=== PATIENT | male | born 1960 | race Caucasian/White ===

== ENCOUNTER 2022-11-19 17:50 | Inpatient (IN) | payer MEDICARE ==
[2022-11-19 20:14] LABS: BASOPHILS ABSOLUTE AUTO 0.05 K/uL (0.00-0.10); BASOPHILS PERCENT AUTO 0.4 % (0.1-1.3); EOSINOPHILS ABSOLUTE AUTO 0.11 K/uL (0.00-0.40); EOSINOPHILS PERCENT AUTO 0.9 % (0.0-5.4); HEMATOCRIT 39.8 % (38.4-49.7); HEMOGLOBIN 13.9 g/dL (12.9-16.9); IMMATURE GRAN ABSOLUTE AUTO 0.14 K/uL (0.00-0.23); IMMATURE GRAN PERCENT AUTO 1.1 % (0.0-0.7); LYMPHOCYTES ABSOLUTE AUTO 2.84 K/uL (0.8-3.3); MEAN CORPUSCULAR HGB CONC 34.9 g/dL (31.6-35.5); MEAN CORPUSCULAR VOLUME 100.3 fL (81.4-99.0); MONOCYTES ABSOLUTE AUTO 0.91 K/uL (0.20-0.90); NEUTROPHILS ABSOLUTE AUTO 8.87 K/uL (1.0-7.6); NEUTROPHILS PERCENT AUTO 68.6 % (40.0-78.1); PLATELET COUNT,PLT 264 K/uL (130-375); RED BLOOD CELL COUNT 3.97 M/uL (4.14-5.76); WHITE BLOOD CELL COUNT,WBC 12.9 K/uL (3.2-11.0)
[2022-11-19 20:34] LABS: A/G RATIO 0.7 (1.2-2.2); ALANINE AMINOTRANSFERASE,ALT 20 U/L (12-78); ALBUMIN 3.2 g/dL (3.4-5.0); ALKALINE PHOSPHATASE 93 U/L (46-116); ASPARTATE AMNIOTRANSFERASE,AST 13 U/L (15-37); BILIRUBIN TOTAL 0.4 mg/dL (0.2-1.0); BLOOD UREA NITROGEN,BUN 18 mg/dL (7-18); CALCIUM 8.9 mg/dL (8.5-10.1); CARBON DIOXIDE,CO2 29 mmol/L (21-32); CHLORIDE,CL 100 mmol/L (100-108); ESTIMATED GFR 86 mL/min (>60); GLUCOSE RANDOM 160 mg/dL (74-106); POTASSIUM,K 4.2 mmol/L (3.6-5.2); SODIUM,NA 135 mmol/L (140-148)
[2022-11-19 20:35] LABS: ANION GAP 10.2 mmol/L (5.0-14.0)
[2022-11-19] MEDS: Piperacillin/Tazobactam 3.375 GM in Sodium Chloride 0.9% 50 ML IV SCH (21:44)
[2022-11-19] MEDS ORDERED: Docusate Sodium 100 MG Cap PO PRN (22:41)
[2022-11-19] MEDS ORDERED: Ondansetron 4 MG Tab.DIS PO PRN (22:41)
[2022-11-19] MEDS ORDERED: Morphine 2 MG/ML SYRINGE IVPUSH PRN (22:41)
[2022-11-19] MEDS ORDERED: LORazepam 2 MG/ML SDV IV PRN (22:41)
[2022-11-19] MEDS ORDERED: Bisacodyl 5 MG Tab PO PRN (22:41)
[2022-11-19] MEDS ORDERED: Albuterol 0.083% 2.5 MG/3 ML Neb Soln NEB PRN (22:41)
[2022-11-19] MEDS ORDERED: Naloxone 0.4 MG/ML SDV IVPUSH PRN (22:41)
[2022-11-19] MEDS: Sodium Chloride 0.9% 1,000 ML IV SCH (22:48)
[2022-11-19] MEDS: Nicotine 7 MG/24 Hr Patch TRDERM SCH (22:49)
[2022-11-19] MEDS: QUEtiapine 25 MG Tab PO SCH (22:55)
[2022-11-19] MEDS: Enoxaparin 40 MG/0.4 ML Syringe SUBCUT SCH (22:55)
[2022-11-20] MEDS: Acetaminophen 325 MG Tab PO PRN ×2 (00:13→15:43)
[2022-11-20] MEDS: Piperacillin/Tazobactam 3.375 GM in Sodium Chloride 0.9% 50 ML IV SCH ×2 (03:16→11:25)
[2022-11-20 05:01] LABS: BASOPHILS ABSOLUTE AUTO 0.05 K/uL (0.00-0.10); BASOPHILS PERCENT AUTO 0.6 % (0.1-1.3); EOSINOPHILS ABSOLUTE AUTO 0.15 K/uL (0.00-0.40); EOSINOPHILS PERCENT AUTO 1.8 % (0.0-5.4); HEMATOCRIT 35.8 % (38.4-49.7); HEMOGLOBIN 12.4 g/dL (12.9-16.9); IMMATURE GRAN ABSOLUTE AUTO 0.06 K/uL (0.00-0.23); IMMATURE GRAN PERCENT AUTO 0.7 % (0.0-0.7); LYMPHOCYTES ABSOLUTE AUTO 2.06 K/uL (0.8-3.3); LYMPHOCYTES PERCENT AUTO 24.9 % (11.4-47.7); MEAN CORPUSCULAR HEMOGLOBIN 35.2 pg (31.6-35.5); MEAN CORPUSCULAR HGB CONC 34.6 g/dL (31.6-35.5); MEAN CORPUSCULAR VOLUME 101.7 fL (81.4-99.0); MONOCYTES PERCENT AUTO 6.1 % (3.3-12.6); NEUTROPHILS ABSOLUTE AUTO 5.44 K/uL (1.0-7.6); NEUTROPHILS PERCENT AUTO 65.9 % (40.0-78.1); PLATELET COUNT,PLT 217 K/uL (130-375); RED BLOOD CELL COUNT 3.52 M/uL (4.14-5.76); WHITE BLOOD CELL COUNT,WBC 8.3 K/uL (3.2-11.0)
[2022-11-20 05:14] LABS: CALCIUM 8.2 mg/dL (8.5-10.1); CREATININE 0.9 mg/dL (0.8-1.3); EST CRCL DRUG DOSING (CG) 84.76 mL/min; POTASSIUM,K 4.6 mmol/L (3.6-5.2)
[2022-11-20 05:26] LABS: ANION GAP 12.6 mmol/L (5.0-14.0)
[2022-11-20] MEDS: Sodium Chloride 0.9% 1,000 ML IV SCH (06:36)
[2022-11-20] MEDS: Insulin Lispro 100 Unit/ML 3 ML KwikPen SUBCUT SCH ×4 (08:52→20:58)
[2022-11-20] MEDS: Nicotine 7 MG/24 Hr Patch TRDERM SCH (08:58)
[2022-11-20 08:59] LABS: HEMOGLOBIN A1C 7.5 % (4.5-6.2)
[2022-11-20] MEDS: Lisinopril 20 MG Tab PO SCH (08:59)
[2022-11-20] MEDS: Enoxaparin 40 MG/0.4 ML Syringe SUBCUT SCH (08:59)
[2022-11-20 09:07] LABS: MAGNESIUM 2.2 mg/dL (1.8-2.4); PHOSPHORUS 3.8 mg/dL (2.5-4.9)
[2022-11-20] MEDS ORDERED: Piperacillin/Tazobactam 3.375 GM in Sodium Chloride 0.9% 50 ML IV SCH (09:30)
[2022-11-20] MEDS: Piperacillin/Tazobactam/Dext 3.375 GM in Premix Bag 1 BAG IV SCH ×3 (10:26→22:35)
[2022-11-20] MEDS: Linezolid 600 MG in Premix Bag 1 BAG IV SCH ×2 (11:08→21:04)
[2022-11-20] MEDS: metFORMIN 500 MG Tab PO SCH ×4 (12:53→20:52)
[2022-11-20 12:54] LABS: APPEARANCE,URINE SLIGHTLY CLOUDY (CLEAR); BILIRUBIN,URINE NEGATIVE (NEGATIVE); COLOR,URINE YELLOW (YELLOW); GLUCOSE,URINE 250 mg/dL (NEGATIVE); KETONES,URINE NEGATIVE (NEGATIVE); LEUKOCYTE ESTERASE,URINE NEGATIVE (NEGATIVE); NITRITE,URINE NEGATIVE (NEGATIVE); OCCULT BLOOD,URINE NEGATIVE (NEGATIVE); PROTEIN,URINE 30 mg/dL (NEGATIVE)
[2022-11-20 12:58] LABS: AMORPHOUS SEDIMENT,URINE RARE; BACTERIA,URINE NOT SEEN; EPITHELIAL CELLS,URINE RARE; MUCUS,URINE NOT SEEN; RBC,URINE 0-5 (0-5); WBC,URINE 0-5 (0-5)
[2022-11-20] MEDS: Pantoprazole 40 MG Vial IV SCH (20:52)
[2022-11-20] MEDS: QUEtiapine 25 MG Tab PO SCH (20:52)
[2022-11-21] MEDS: Piperacillin/Tazobactam/Dext 3.375 GM in Premix Bag 1 BAG IV SCH ×4 (04:10→21:30)
[2022-11-21 05:01] LABS: BASOPHILS ABSOLUTE AUTO 0.04 K/uL (0.00-0.10); BASOPHILS PERCENT AUTO 0.5 % (0.1-1.3); EOSINOPHILS ABSOLUTE AUTO 0.31 K/uL (0.00-0.40); EOSINOPHILS PERCENT AUTO 3.7 % (0.0-5.4); HEMATOCRIT 36.2 % (38.4-49.7); HEMOGLOBIN 12.3 g/dL (12.9-16.9); IMMATURE GRAN PERCENT AUTO 1.2 % (0.0-0.7); LYMPHOCYTES ABSOLUTE AUTO 2.96 K/uL (0.8-3.3); LYMPHOCYTES PERCENT AUTO 35.5 % (11.4-47.7); MEAN CORPUSCULAR HEMOGLOBIN 34.6 pg (31.6-35.5); MONOCYTES ABSOLUTE AUTO 0.53 K/uL (0.20-0.90); MONOCYTES PERCENT AUTO 6.4 % (3.3-12.6); NEUTROPHILS ABSOLUTE AUTO 4.39 K/uL (1.0-7.6); NEUTROPHILS PERCENT AUTO 52.7 % (40.0-78.1); PLATELET COUNT,PLT 238 K/uL (130-375); RED BLOOD CELL COUNT 3.55 M/uL (4.14-5.76); WHITE BLOOD CELL COUNT,WBC 8.3 K/uL (3.2-11.0)
[2022-11-21 05:19] LABS: CALCIUM 8.5 mg/dL (8.5-10.1); CREATININE 0.8 mg/dL (0.8-1.3); EST CRCL DRUG DOSING (CG) 95.35 mL/min; POTASSIUM,K 4.1 mmol/L (3.6-5.2)
[2022-11-21 05:22] LABS: ANION GAP 10.1 mmol/L (5.0-14.0)
[2022-11-21] MEDS: Insulin Lispro 100 Unit/ML 3 ML KwikPen SUBCUT SCH ×4 (07:43→21:07)
[2022-11-21] MEDS: metFORMIN 500 MG Tab PO SCH ×4 (08:41→21:30)
[2022-11-21] MEDS: Lisinopril 20 MG Tab PO SCH (08:42)
[2022-11-21] MEDS: Nicotine 7 MG/24 Hr Patch TRDERM SCH (08:43)
[2022-11-21] MEDS: Enoxaparin 40 MG/0.4 ML Syringe SUBCUT SCH (08:45)
[2022-11-21] MEDS: Linezolid 600 MG in Premix Bag 1 BAG IV SCH ×2 (10:32→22:20)
[2022-11-21] MEDS: Acetaminophen 325 MG Tab PO PRN (14:36)
[2022-11-21] MEDS: QUEtiapine 25 MG Tab PO SCH (21:30)
[2022-11-21] MEDS: Pantoprazole 40 MG Vial IV SCH (21:30)
[2022-11-22] MEDS: Piperacillin/Tazobactam/Dext 3.375 GM in Premix Bag 1 BAG IV SCH ×4 (02:34→21:53)
[2022-11-22 04:52] LABS: BASOPHILS ABSOLUTE AUTO 0.05 K/uL (0.00-0.10); BASOPHILS PERCENT AUTO 0.5 % (0.1-1.3); EOSINOPHILS ABSOLUTE AUTO 0.27 K/uL (0.00-0.40); EOSINOPHILS PERCENT AUTO 2.5 % (0.0-5.4); HEMATOCRIT 36.1 % (38.4-49.7); HEMOGLOBIN 12.8 g/dL (12.9-16.9); IMMATURE GRAN PERCENT AUTO 0.9 % (0.0-0.7); LYMPHOCYTES ABSOLUTE AUTO 3.85 K/uL (0.8-3.3); LYMPHOCYTES PERCENT AUTO 36.2 % (11.4-47.7); MEAN CORPUSCULAR HEMOGLOBIN 35.4 pg (31.6-35.5); MEAN CORPUSCULAR HGB CONC 35.5 g/dL (31.6-35.5); MEAN CORPUSCULAR VOLUME 99.7 fL (81.4-99.0); MONOCYTES ABSOLUTE AUTO 0.72 K/uL (0.20-0.90); MONOCYTES PERCENT AUTO 6.8 % (3.3-12.6); NEUTROPHILS ABSOLUTE AUTO 5.66 K/uL (1.0-7.6); NEUTROPHILS PERCENT AUTO 53.1 % (40.0-78.1); PLATELET COUNT,PLT 259 K/uL (130-375); RED BLOOD CELL COUNT 3.62 M/uL (4.14-5.76); WHITE BLOOD CELL COUNT,WBC 10.7 K/uL (3.2-11.0)
[2022-11-22 05:00] LABS: CALCIUM 8.6 mg/dL (8.5-10.1); CREATININE 0.9 mg/dL (0.8-1.3); EST CRCL DRUG DOSING (CG) 84.76 mL/min; POTASSIUM,K 3.8 mmol/L (3.6-5.2)
[2022-11-22 05:19] LABS: ANION GAP 14.8 mmol/L (5.0-14.0)
[2022-11-22] MEDS: Insulin Lispro 100 Unit/ML 3 ML KwikPen SUBCUT SCH ×4 (07:33→21:59)
[2022-11-22] MEDS: metFORMIN 500 MG Tab PO SCH ×4 (08:31→21:54)
[2022-11-22] MEDS: Nicotine 7 MG/24 Hr Patch TRDERM SCH (08:33)
[2022-11-22] MEDS: Enoxaparin 40 MG/0.4 ML Syringe SUBCUT SCH (08:34)
[2022-11-22] MEDS: Lisinopril 20 MG Tab PO SCH (08:34)
[2022-11-22] MEDS ORDERED: Gadoteridol 279.3 MG/ML 20 ML SDV IV SCH (09:15)
[2022-11-22] MEDS: Linezolid 600 MG in Premix Bag 1 BAG IV SCH ×2 (10:36→22:03)
[2022-11-22] MEDS: QUEtiapine 100 MG Tab PO SCH (21:53)
[2022-11-22] MEDS: Pantoprazole 40 MG Tab.CR PO SCH (21:54)
[2022-11-23] MEDS: Piperacillin/Tazobactam/Dext 3.375 GM in Premix Bag 1 BAG IV SCH ×2 (02:40→08:50)
[2022-11-23 05:12] LABS: BASOPHILS ABSOLUTE AUTO 0.04 K/uL (0.00-0.10); BASOPHILS PERCENT AUTO 0.4 % (0.1-1.3); EOSINOPHILS ABSOLUTE AUTO 0.25 K/uL (0.00-0.40); EOSINOPHILS PERCENT AUTO 2.4 % (0.0-5.4); HEMATOCRIT 36.5 % (38.4-49.7); HEMOGLOBIN 12.6 g/dL (12.9-16.9); IMMATURE GRAN ABSOLUTE AUTO 0.08 K/uL (0.00-0.23); IMMATURE GRAN PERCENT AUTO 0.8 % (0.0-0.7); LYMPHOCYTES ABSOLUTE AUTO 3.93 K/uL (0.8-3.3); LYMPHOCYTES PERCENT AUTO 37.7 % (11.4-47.7); MEAN CORPUSCULAR HEMOGLOBIN 34.4 pg (31.6-35.5); MEAN CORPUSCULAR HGB CONC 34.5 g/dL (31.6-35.5); MEAN CORPUSCULAR VOLUME 99.7 fL (81.4-99.0); MONOCYTES ABSOLUTE AUTO 0.63 K/uL (0.20-0.90); NEUTROPHILS PERCENT AUTO 52.7 % (40.0-78.1); PLATELET COUNT,PLT 258 K/uL (130-375); RED BLOOD CELL COUNT 3.66 M/uL (4.14-5.76); WHITE BLOOD CELL COUNT,WBC 10.4 K/uL (3.2-11.0)
[2022-11-23] MEDS: oxyCODONE 5 MG Tab PO PRN ×4 (05:14→23:42)
[2022-11-23 05:26] LABS: ANION GAP 12.1 mmol/L (5.0-14.0); CALCIUM 8.3 mg/dL (8.5-10.1); CREATININE 0.9 mg/dL (0.8-1.3); EST CRCL DRUG DOSING (CG) 84.76 mL/min; POTASSIUM,K 3.9 mmol/L (3.6-5.2)
[2022-11-23] MEDS ORDERED: Meropenem 500 MG SDV ONE (07:48)
[2022-11-23] MEDS ORDERED: fentaNYL 250 MCG/5 ML SDV ONE ×2 (08:20→10:01)
[2022-11-23] MEDS ORDERED: Glycopyrrolate 0.2 MG/ML 5 ML MDV ONE (08:22)
[2022-11-23] MEDS ORDERED: Rocuronium 50 MG/5 ML Vial ONE (08:22)
[2022-11-23] MEDS ORDERED: Dexamethasone 4 MG/ML SDV ONE (08:22)
[2022-11-23] MEDS ORDERED: Propofol 200 MG/20 ML SDV ONE (08:22)
[2022-11-23] MEDS ORDERED: Neostigmine Methylsulfate 1 MG/ML 5 ML Syringe ONE (08:22)
[2022-11-23] MEDS ORDERED: Succinylcholine 200 MG/10 ML MDV ONE (08:22)
[2022-11-23] MEDS ORDERED: Ondansetron 4 MG/2 ML SDV ONE (08:22)
[2022-11-23] MEDS: Insulin Lispro 100 Unit/ML 3 ML KwikPen SUBCUT SCH ×4 (08:29→20:51)
[2022-11-23] MEDS: metFORMIN 500 MG Tab PO SCH ×4 (08:42→20:16)
[2022-11-23] MEDS: Enoxaparin 40 MG/0.4 ML Syringe SUBCUT SCH (08:43)
[2022-11-23] MEDS: Lisinopril 20 MG Tab PO SCH ×2 (08:44→12:00)
[2022-11-23] MEDS ORDERED: Meropenem 500 MG in Sodium Chloride 0.9% 50 ML IV ONE (10:00)
[2022-11-23] MEDS: Linezolid 600 MG in Premix Bag 1 BAG IV SCH ×2 (10:15→21:36)
[2022-11-23] MEDS ORDERED: Hydrogen Peroxide 3% Top Soln 240 ML Bottle ONE (10:59)
[2022-11-23] MEDS: Nicotine 7 MG/24 Hr Patch TRDERM SCH (11:59)
[2022-11-23] MEDS: Lactated Ringers 1,000 ML IV SCH (12:39)
[2022-11-23] MEDS: Meropenem 500 MG in Sodium Chloride 0.9% 50 ML IV SCH ×2 (15:46→21:00)
[2022-11-23] MEDS: Pantoprazole 40 MG Tab.CR PO SCH (20:17)
[2022-11-23] MEDS: QUEtiapine 100 MG Tab PO SCH (20:17)
[2022-11-23] MEDS: DULoxetine 20 MG Cap PO SCH (20:55)
[2022-11-24] MEDS: Lactated Ringers 1,000 ML IV SCH ×2 (03:55→20:34)
[2022-11-24] MEDS: Meropenem 500 MG in Sodium Chloride 0.9% 50 ML IV SCH ×2 (03:55→10:05)
[2022-11-24] MEDS: oxyCODONE 5 MG Tab PO PRN ×4 (03:56→20:49)
[2022-11-24 04:15] LABS: BASOPHILS ABSOLUTE AUTO 0.03 K/uL (0.00-0.10); BASOPHILS PERCENT AUTO 0.2 % (0.1-1.3); EOSINOPHILS ABSOLUTE AUTO 0.03 K/uL (0.00-0.40); EOSINOPHILS PERCENT AUTO 0.2 % (0.0-5.4); HEMATOCRIT 34.5 % (38.4-49.7); HEMOGLOBIN 12.2 g/dL (12.9-16.9); IMMATURE GRAN ABSOLUTE AUTO 0.07 K/uL (0.00-0.23); IMMATURE GRAN PERCENT AUTO 0.5 % (0.0-0.7); LYMPHOCYTES ABSOLUTE AUTO 3.27 K/uL (0.8-3.3); LYMPHOCYTES PERCENT AUTO 25.2 % (11.4-47.7); MEAN CORPUSCULAR HEMOGLOBIN 35.2 pg (31.6-35.5); MEAN CORPUSCULAR HGB CONC 35.4 g/dL (31.6-35.5); MEAN CORPUSCULAR VOLUME 99.4 fL (81.4-99.0); MONOCYTES ABSOLUTE AUTO 0.89 K/uL (0.20-0.90); MONOCYTES PERCENT AUTO 6.9 % (3.3-12.6); NEUTROPHILS ABSOLUTE AUTO 8.67 K/uL (1.0-7.6); PLATELET COUNT,PLT 252 K/uL (130-375); RED BLOOD CELL COUNT 3.47 M/uL (4.14-5.76)
[2022-11-24 04:44] LABS: A/G RATIO 0.7 (1.2-2.2); ALANINE AMINOTRANSFERASE,ALT 154 U/L (12-78); ALBUMIN 2.7 g/dL (3.4-5.0); ALKALINE PHOSPHATASE 97 U/L (46-116); ANION GAP 11.3 mmol/L (5.0-14.0); ASPARTATE AMNIOTRANSFERASE,AST 75 U/L (15-37); BILIRUBIN TOTAL 0.3 mg/dL (0.2-1.0); BLOOD UREA NITROGEN,BUN 14 mg/dL (7-18); CALCIUM 8.3 mg/dL (8.5-10.1); CARBON DIOXIDE,CO2 27 mmol/L (21-32); CHLORIDE,CL 102 mmol/L (100-108); CREATININE 0.9 mg/dL (0.8-1.3); EST CRCL DRUG DOSING (CG) 84.76 mL/min; ESTIMATED GFR 98 mL/min (>60); GLUCOSE RANDOM 115 mg/dL (74-106); MAGNESIUM 2.2 mg/dL (1.8-2.4); PHOSPHORUS 3.5 mg/dL (2.5-4.9); PRO B-TYPE NATRIUR PEPT,BNPPRO 47 pg/mL (5-125); PROTEIN TOTAL,TP 6.8 g/dL (6.4-8.2); SODIUM,NA 140 mmol/L (140-148)
[2022-11-24] MEDS: Insulin Lispro 100 Unit/ML 3 ML KwikPen SUBCUT SCH ×4 (07:42→21:39)
[2022-11-24] MEDS: DULoxetine 20 MG Cap PO SCH ×2 (08:43→21:39)
[2022-11-24] MEDS: metFORMIN 500 MG Tab PO SCH ×4 (08:44→21:38)
[2022-11-24] MEDS: Nicotine 7 MG/24 Hr Patch TRDERM SCH (08:45)
[2022-11-24] MEDS: Enoxaparin 40 MG/0.4 ML Syringe SUBCUT SCH (08:46)
[2022-11-24] MEDS: Lisinopril 20 MG Tab PO SCH (08:47)
[2022-11-24] MEDS: Linezolid 600 MG in Premix Bag 1 BAG IV SCH (10:41)
[2022-11-24] MEDS: metroNIDAZOLE/Normal Saline 500 MG in Premix Bag 1 BAG IV SCH ×2 (14:38→21:41)
[2022-11-24] MEDS: cefTRIAXone 2 GM in Sodium Chloride 0.9% 50 ML IV SCH (16:52)
[2022-11-24] MEDS: QUEtiapine 100 MG Tab PO SCH (21:37)
[2022-11-24] MEDS: Pantoprazole 40 MG Tab.CR PO SCH (21:37)
[2022-11-24] MEDS: Acetaminophen 325 MG Tab PO PRN (23:43)
[2022-11-25] MEDS: oxyCODONE 5 MG Tab PO PRN ×5 (05:13→23:49)
[2022-11-25 05:14] LABS: BASOPHILS ABSOLUTE AUTO 0.06 K/uL (0.00-0.10); BASOPHILS PERCENT AUTO 0.5 % (0.1-1.3); EOSINOPHILS ABSOLUTE AUTO 0.27 K/uL (0.00-0.40); EOSINOPHILS PERCENT AUTO 2.3 % (0.0-5.4); HEMATOCRIT 33.7 % (38.4-49.7); HEMOGLOBIN 11.7 g/dL (12.9-16.9); IMMATURE GRAN ABSOLUTE AUTO 0.07 K/uL (0.00-0.23); IMMATURE GRAN PERCENT AUTO 0.6 % (0.0-0.7); LYMPHOCYTES ABSOLUTE AUTO 3.85 K/uL (0.8-3.3); MEAN CORPUSCULAR HEMOGLOBIN 35.1 pg (31.6-35.5); MEAN CORPUSCULAR HGB CONC 34.7 g/dL (31.6-35.5); MEAN CORPUSCULAR VOLUME 101.2 fL (81.4-99.0); MONOCYTES ABSOLUTE AUTO 0.73 K/uL (0.20-0.90); MONOCYTES PERCENT AUTO 6.3 % (3.3-12.6); NEUTROPHILS ABSOLUTE AUTO 6.67 K/uL (1.0-7.6); NEUTROPHILS PERCENT AUTO 57.3 % (40.0-78.1); PLATELET COUNT,PLT 241 K/uL (130-375); RED BLOOD CELL COUNT 3.33 M/uL (4.14-5.76); WHITE BLOOD CELL COUNT,WBC 11.7 K/uL (3.2-11.0)
[2022-11-25] MEDS: metroNIDAZOLE/Normal Saline 500 MG in Premix Bag 1 BAG IV SCH ×3 (05:14→21:31)
[2022-11-25 05:34] LABS: ANION GAP 6.9 mmol/L (5.0-14.0); CALCIUM 8.3 mg/dL (8.5-10.1); CREATININE 0.8 mg/dL (0.8-1.3); EST CRCL DRUG DOSING (CG) 95.35 mL/min; POTASSIUM,K 4.2 mmol/L (3.6-5.2)
[2022-11-25] MEDS: Insulin Lispro 100 Unit/ML 3 ML KwikPen SUBCUT SCH ×4 (08:46→21:23)
[2022-11-25] MEDS: metFORMIN 500 MG Tab PO SCH ×6 (08:49→22:57)
[2022-11-25] MEDS: Lisinopril 20 MG Tab PO SCH (08:50)
[2022-11-25] MEDS: Enoxaparin 40 MG/0.4 ML Syringe SUBCUT SCH (08:52)
[2022-11-25] MEDS: Nicotine 7 MG/24 Hr Patch TRDERM SCH (08:52)
[2022-11-25] MEDS: DULoxetine 20 MG Cap PO SCH ×2 (08:55→21:28)
[2022-11-25] MEDS: cefTRIAXone 2 GM in Sodium Chloride 0.9% 50 ML IV SCH (16:58)
[2022-11-25] MEDS: Pantoprazole 40 MG Tab.CR PO SCH (21:28)
[2022-11-25] MEDS: QUEtiapine 100 MG Tab PO SCH (21:28)
[2022-11-26 04:58] LABS: BASOPHILS ABSOLUTE AUTO 0.05 K/uL (0.00-0.10); BASOPHILS PERCENT AUTO 0.5 % (0.1-1.3); EOSINOPHILS ABSOLUTE AUTO 0.26 K/uL (0.00-0.40); EOSINOPHILS PERCENT AUTO 2.4 % (0.0-5.4); HEMATOCRIT 33.5 % (38.4-49.7); HEMOGLOBIN 11.7 g/dL (12.9-16.9); IMMATURE GRAN ABSOLUTE AUTO 0.07 K/uL (0.00-0.23); IMMATURE GRAN PERCENT AUTO 0.6 % (0.0-0.7); LYMPHOCYTES ABSOLUTE AUTO 3.54 K/uL (0.8-3.3); LYMPHOCYTES PERCENT AUTO 32.8 % (11.4-47.7); MEAN CORPUSCULAR HEMOGLOBIN 34.8 pg (31.6-35.5); MEAN CORPUSCULAR HGB CONC 34.9 g/dL (31.6-35.5); MEAN CORPUSCULAR VOLUME 99.7 fL (81.4-99.0); MONOCYTES ABSOLUTE AUTO 0.67 K/uL (0.20-0.90); MONOCYTES PERCENT AUTO 6.2 % (3.3-12.6); NEUTROPHILS ABSOLUTE AUTO 6.19 K/uL (1.0-7.6); NEUTROPHILS PERCENT AUTO 57.5 % (40.0-78.1); PLATELET COUNT,PLT 252 K/uL (130-375); RED BLOOD CELL COUNT 3.36 M/uL (4.14-5.76); WHITE BLOOD CELL COUNT,WBC 10.8 K/uL (3.2-11.0)
[2022-11-26] MEDS: oxyCODONE 5 MG Tab PO PRN ×3 (05:05→21:43)
[2022-11-26 05:19] LABS: ANION GAP 7.7 mmol/L (5.0-14.0); CALCIUM 8.6 mg/dL (8.5-10.1); CREATININE 0.8 mg/dL (0.8-1.3); EST CRCL DRUG DOSING (CG) 95.35 mL/min; POTASSIUM,K 3.9 mmol/L (3.6-5.2)
[2022-11-26] MEDS: metroNIDAZOLE/Normal Saline 500 MG in Premix Bag 1 BAG IV SCH (05:38)
[2022-11-26] MEDS: Insulin Lispro 100 Unit/ML 3 ML KwikPen SUBCUT SCH ×4 (07:34→21:38)
[2022-11-26] MEDS ORDERED: Levofloxacin 250 MG Tab PO SCH (09:00)
[2022-11-26] MEDS: Acetaminophen 325 MG Tab PO PRN ×2 (09:01→21:43)
[2022-11-26] MEDS: Lisinopril 20 MG Tab PO SCH (09:02)
[2022-11-26] MEDS: DULoxetine 20 MG Cap PO SCH ×2 (09:02→21:40)
[2022-11-26] MEDS: metFORMIN 500 MG Tab PO SCH ×4 (09:02→21:41)
[2022-11-26] MEDS: Nicotine 7 MG/24 Hr Patch TRDERM SCH (09:03)
[2022-11-26] MEDS: Enoxaparin 40 MG/0.4 ML Syringe SUBCUT SCH (09:03)
[2022-11-26] MEDS: Cephalexin 250 MG Cap PO SCH ×3 (09:44→21:42)
[2022-11-26] MEDS: Pantoprazole 40 MG Tab.CR PO SCH (21:42)
[2022-11-26] MEDS: QUEtiapine 100 MG Tab PO SCH (21:42)
[2022-11-27 04:36] LABS: HEMATOCRIT 35.2 % (38.4-49.7); HEMOGLOBIN 12.3 g/dL (12.9-16.9); MEAN CORPUSCULAR HEMOGLOBIN 34.5 pg (31.6-35.5); MEAN CORPUSCULAR HGB CONC 34.9 g/dL (31.6-35.5); MEAN CORPUSCULAR VOLUME 98.6 fL (81.4-99.0); RED BLOOD CELL COUNT 3.57 M/uL (4.14-5.76); WHITE BLOOD CELL COUNT,WBC 10.6 K/uL (3.2-11.0)
[2022-11-27 05:07] LABS: A/G RATIO 0.8 (1.2-2.2); ALANINE AMINOTRANSFERASE,ALT 62 U/L (12-78); ALBUMIN 2.8 g/dL (3.4-5.0); ALKALINE PHOSPHATASE 78 U/L (46-116); ASPARTATE AMNIOTRANSFERASE,AST 14 U/L (15-37); BILIRUBIN TOTAL 0.4 mg/dL (0.2-1.0); BLOOD UREA NITROGEN,BUN 14 mg/dL (7-18); CALCIUM 8.4 mg/dL (8.5-10.1); CARBON DIOXIDE,CO2 26 mmol/L (21-32); CHLORIDE,CL 102 mmol/L (100-108); CREATININE 0.8 mg/dL (0.8-1.3); EST CRCL DRUG DOSING (CG) 95.35 mL/min; ESTIMATED GFR 101 mL/min (>60); GLUCOSE RANDOM 101 mg/dL (74-106); PHOSPHORUS 4.6 mg/dL (2.5-4.9); POTASSIUM,K 3.9 mmol/L (3.6-5.2); PROTEIN TOTAL,TP 6.5 g/dL (6.4-8.2); SODIUM,NA 139 mmol/L (140-148)
[2022-11-27 05:09] LABS: ANION GAP 14.9 mmol/L (5.0-14.0)
[2022-11-27] MEDS: oxyCODONE 5 MG Tab PO PRN (07:08)
[2022-11-27] MEDS: Insulin Lispro 100 Unit/ML 3 ML KwikPen SUBCUT SCH (07:35)
[2022-11-27] MEDS: Enoxaparin 40 MG/0.4 ML Syringe SUBCUT SCH (08:28)
[2022-11-27] MEDS: DULoxetine 20 MG Cap PO SCH (08:29)
[2022-11-27] MEDS: metFORMIN 500 MG Tab PO SCH ×2 (08:29)
[2022-11-27] MEDS: Cephalexin 250 MG Cap PO SCH (08:29)
[2022-11-27] MEDS: Lisinopril 20 MG Tab PO SCH (08:30)
[2022-11-27] MEDS: Nicotine 7 MG/24 Hr Patch TRDERM SCH (08:30)
== END 2022-11-27 09:10 | disposition home or self-care (01) | DRG 617 ==
LOC: JP.ED 17:50 → MERGE 21:11 → JP.MS 21:11
PROVIDERS: ADMIT Hospitalist; ATTEND Internal Medicine
PROC: 0Y6P0Z0 Detachment at Right 1st Toe, Complete, Open Approach (ICD-10-PCS; principal; 2022-11-23)
DX: E11.69 Type 2 diabetes mellitus with other specified complication (principal); S92.421B Displaced fracture of distal phalanx of right great toe, initial encounter for open fracture; L03.115 Cellulitis of right lower limb; M86.8X7 Other osteomyelitis, ankle and foot; S92.424B Nondisplaced fracture of distal phalanx of right great toe, initial encounter for open fracture; Z66 Do not resuscitate; I10 Essential (primary) hypertension; K21.9 Gastro-esophageal reflux disease without esophagitis; F41.9 Anxiety disorder, unspecified; F32.A Depression, unspecified; M19.90 Unspecified osteoarthritis, unspecified site; G43.909 Migraine, unspecified, not intractable, without status migrainosus; E11.621 Type 2 diabetes mellitus with foot ulcer; L97.509 Non-pressure chronic ulcer of other part of unspecified foot with unspecified severity; E11.42 Type 2 diabetes mellitus with diabetic polyneuropathy; F17.210 Nicotine dependence, cigarettes, uncomplicated; Z98.84 Bariatric surgery status; Z98.890 Other specified postprocedural states; E11.9 Type 2 diabetes mellitus without complications; Z79.899 Other long term (current) drug therapy; W20.8XXA Other cause of strike by thrown, projected or falling object, initial encounter
CPT/HCPCS: 36415; 73620-26-RT; 73620-RT; 73723-26-RT; 73723-RT; 80048; 80053; 81001; 82947; 83036; 83605; 83735; 83880; 84100; 85025; 85027; 87040; 87070; 87075; 87077; 87186; 87205; 88305; 88311; 93926-RT; 97116-GP; 97161-GP; 97530-GP; 99222; 99232; 99284; A9270-GY; A9579; C9113; J0131; J0330; J0696; J1100; J1650; J1815; J2020; J2185; J2405; J2543; J2704; J2710; J3010; J3490; J7030; J7120; U0002

== ENCOUNTER 2023-06-11 19:03 | Emergency (ER) | payer MEDICARE ==
[2023-06-11 21:52] LABS: A/G RATIO 0.7 (1.2-2.2); ALANINE AMINOTRANSFERASE,ALT 30 U/L (12-78); ALBUMIN 3.3 g/dL (3.4-5.0); ALKALINE PHOSPHATASE 124 U/L (46-116); ASPARTATE AMNIOTRANSFERASE,AST 11 U/L (15-37); BILIRUBIN TOTAL 0.3 mg/dL (0.2-1.0); BLOOD UREA NITROGEN,BUN 16 mg/dL (7-18); C-REACTIVE PROTEIN 1.21 mg/dL (<0.50); CALCIUM 9.3 mg/dL (8.5-10.1); CARBON DIOXIDE,CO2 29 mmol/L (21-32); CHLORIDE,CL 99 mmol/L (100-108); CREATININE 1.1 mg/dL (0.8-1.3); EST CRCL DRUG DOSING (CG) 73.74 mL/min; ESTIMATED GFR 77 mL/min (>60); GLUCOSE RANDOM 333 mg/dL (74-106); POTASSIUM,K 4.5 mmol/L (3.6-5.2); PROTEIN TOTAL,TP 7.8 g/dL (6.4-8.2); SODIUM,NA 135 mmol/L (140-148)
[2023-06-11 21:54] LABS: ANION GAP 11.5 mmol/L (5.0-14.0); WHITE BLOOD CELL COUNT,WBC 10.8 K/uL (3.2-11.0)
[2023-06-11 21:55] LABS: HEMOGLOBIN 16.1 g/dL (12.9-16.9); PLATELET COUNT,PLT 221 K/uL (130-375)
[2023-06-11 21:56] LABS: EOSINOPHILS ABSOLUTE MAN 0.43 K/uL (0.00-0.40); EOSINOPHILS PERCENT MAN 4 % (2-4); LYMPHOCYTES ABSOLUTE MAN 3.78 K/uL (0.8-3.3); LYMPHOCYTES PERCENT MAN 35 % (24-44); MONOCYTES ABSOLUTE MAN 0.86 K/uL (0.20-0.90); MONOCYTES PERCENT MAN 8 % (2-6); NEUTROPHILS ABSOLUTE MAN 5.72 K/uL (1.0-7.6); SEG NEUTROPHILS PERCENT MAN 53 % (36-66)
== END 2023-06-11 22:47 | disposition home or self-care (01) ==
LOC: JP.ED 19:03
DX: S91.101A Unspecified open wound of right great toe without damage to nail, initial encounter (principal); E11.9 Type 2 diabetes mellitus without complications; I10 Essential (primary) hypertension; K21.9 Gastro-esophageal reflux disease without esophagitis; F17.210 Nicotine dependence, cigarettes, uncomplicated; Z79.899 Other long term (current) drug therapy; Z79.84 Long term (current) use of oral hypoglycemic drugs; X58.XXXA Exposure to other specified factors, initial encounter
CPT/HCPCS: 36415; 73630-26-RT; 73630-RT; 80053; 85025; 86140; 99283

== ENCOUNTER 2023-10-24 19:03 | Emergency (ER) | payer MEDICARE, MEDICAID | END 2023-10-24 21:01 | disposition home or self-care (01) | LOC: JP.ED 19:03 | DX: S90.852A Superficial foreign body, left foot, initial encounter (principal); F17.210 Nicotine dependence, cigarettes, uncomplicated; I10 Essential (primary) hypertension; K21.9 Gastro-esophageal reflux disease without esophagitis; E11.9 Type 2 diabetes mellitus without complications; Z79.84 Long term (current) use of oral hypoglycemic drugs; Z79.899 Other long term (current) drug therapy; W45.8XXA Other foreign body or object entering through skin, initial encounter | CPT/HCPCS: 73630-26-LT; 73630-LT; 99283 ==

== ENCOUNTER 2024-05-03 14:32 | Emergency (ER) | payer MEDICARE, MEDICAID ==
[2024-05-03 15:39] LABS: BASOPHILS ABSOLUTE AUTO 0.04 K/uL (0.00-0.10); BASOPHILS PERCENT AUTO 0.3 % (0.1-1.3); EOSINOPHILS ABSOLUTE AUTO 0.18 K/uL (0.00-0.40); EOSINOPHILS PERCENT AUTO 1.6 % (0.0-5.4); HEMATOCRIT 37.5 % (38.4-49.7); HEMOGLOBIN 12.9 g/dL (12.9-16.9); IMMATURE GRAN ABSOLUTE AUTO 0.07 K/uL (0.00-0.23); IMMATURE GRAN PERCENT AUTO 0.6 % (0.0-0.7); LYMPHOCYTES ABSOLUTE AUTO 3.21 K/uL (0.8-3.3); LYMPHOCYTES PERCENT AUTO 27.8 % (11.4-47.7); MEAN CORPUSCULAR HEMOGLOBIN 32.3 pg (31.6-35.5); MEAN CORPUSCULAR HGB CONC 34.4 g/dL (31.6-35.5); MEAN CORPUSCULAR VOLUME 93.8 fL (81.4-99.0); MONOCYTES PERCENT AUTO 6.9 % (3.3-12.6); NEUTROPHILS ABSOLUTE AUTO 7.24 K/uL (1.0-7.6); NEUTROPHILS PERCENT AUTO 62.8 % (40.0-78.1); PLATELET COUNT,PLT 262 K/uL (130-375); WHITE BLOOD CELL COUNT,WBC 11.5 K/uL (3.2-11.0)
[2024-05-03 15:59] LABS: A/G RATIO 0.8 (1.2-2.2); ALANINE AMINOTRANSFERASE,ALT 28 U/L (12-78); ALBUMIN 3.3 g/dL (3.4-5.0); ALKALINE PHOSPHATASE 83 U/L (46-116); ASPARTATE AMNIOTRANSFERASE,AST 13 U/L (15-37); BILIRUBIN TOTAL 0.5 mg/dL (0.2-1.0); BLOOD UREA NITROGEN,BUN 13 mg/dL (7-18); CALCIUM 9.3 mg/dL (8.5-10.1); CARBON DIOXIDE,CO2 30 mmol/L (21-32); CHLORIDE,CL 103 mmol/L (100-108); CREATININE 0.9 mg/dL (0.8-1.3); EST CRCL DRUG DOSING (CG) 79.08 mL/min; ESTIMATED GFR 97 mL/min (>60); GLUCOSE RANDOM 178 mg/dL (74-106); POTASSIUM,K 4.4 mmol/L (3.6-5.2); PROTEIN TOTAL,TP 7.4 g/dL (6.4-8.2); SODIUM,NA 139 mmol/L (140-148)
[2024-05-03 16:00] LABS: ANION GAP 10.4 mmol/L (5.0-14.0)
[2024-05-03] MEDS: Lidocaine 1% 5 ML VIAL INJECT ONE (16:40)
[2024-05-03] MEDS: cefTRIAXone 1 GM Vial IM SCH (16:40)
== END 2024-05-03 17:01 | disposition home or self-care (01) ==
LOC: JP.ED 14:32
DX: L03.116 Cellulitis of left lower limb (principal); S91.302A Unspecified open wound, left foot, initial encounter; I10 Essential (primary) hypertension; J44.9 Chronic obstructive pulmonary disease, unspecified; E11.9 Type 2 diabetes mellitus without complications; K21.9 Gastro-esophageal reflux disease without esophagitis; F17.210 Nicotine dependence, cigarettes, uncomplicated; Z79.899 Other long term (current) drug therapy; Z79.4 Long term (current) use of insulin; X58.XXXA Exposure to other specified factors, initial encounter
CPT/HCPCS: 36415; 80053; 85025; 96372; 99283; J0696; J2003

== ENCOUNTER 2024-05-15 11:17 | Emergency (ER) | payer MEDICARE, MEDICAID ==
[2024-05-15] MEDS: Lidocaine 1% 5 ML VIAL INJECT ONE (12:01)
[2024-05-15] MEDS: Bacitracin Oint 1 GM U/D Packet TOP ONE (12:01)
== END 2024-05-15 12:05 | disposition home or self-care (01) ==
LOC: JP.ED 11:17
DX: S61.216A Laceration without foreign body of right little finger without damage to nail, initial encounter (principal); I10 Essential (primary) hypertension; J44.9 Chronic obstructive pulmonary disease, unspecified; E11.9 Type 2 diabetes mellitus without complications; F17.210 Nicotine dependence, cigarettes, uncomplicated; Z79.4 Long term (current) use of insulin; Z79.899 Other long term (current) drug therapy; Z79.51 Long term (current) use of inhaled steroids; W25.XXXA Contact with sharp glass, initial encounter; Y93.89 Activity, other specified
CPT/HCPCS: 12001; 99282; 99283; J2003

== ENCOUNTER 2024-06-24 07:46 | Emergency (ER) | payer MEDICARE, MEDICAID | END 2024-06-24 08:39 | disposition home or self-care (01) | LOC: JP.ED 07:46 | DX: H60.92 Unspecified otitis externa, left ear (principal) | CPT/HCPCS: 99282 ==

== ENCOUNTER 2024-07-08 08:13 | Emergency (ER) | payer MEDICARE, MEDICAID | END 2024-07-08 10:36 | disposition home or self-care (01) | LOC: JP.ED 08:13 | DX: Z48.89 Encounter for other specified surgical aftercare (principal); I10 Essential (primary) hypertension; J44.9 Chronic obstructive pulmonary disease, unspecified; K21.9 Gastro-esophageal reflux disease without esophagitis; E11.9 Type 2 diabetes mellitus without complications; F17.200 Nicotine dependence, unspecified, uncomplicated; Z98.84 Bariatric surgery status; Z91.030 Bee allergy status; Z91.048 Other nonmedicinal substance allergy status; Z79.4 Long term (current) use of insulin; Z79.899 Other long term (current) drug therapy | CPT/HCPCS: 99282 ==

== ENCOUNTER 2024-10-28 16:28 | Emergency (ER) | payer MEDICARE, MEDICAID | END 2024-10-28 18:46 | disposition home or self-care (01) | LOC: JP.ED 16:28 | DX: S43.401A Unspecified sprain of right shoulder joint, initial encounter (principal); I10 Essential (primary) hypertension; K21.9 Gastro-esophageal reflux disease without esophagitis; J44.9 Chronic obstructive pulmonary disease, unspecified; E11.9 Type 2 diabetes mellitus without complications; Z91.030 Bee allergy status; Z91.048 Other nonmedicinal substance allergy status; Z79.4 Long term (current) use of insulin; Z79.899 Other long term (current) drug therapy; X58.XXXA Exposure to other specified factors, initial encounter | CPT/HCPCS: 73030-26-RT; 73030-RT; 99283; A9270-GY ==

== ENCOUNTER 2024-12-09 13:15 | Emergency (ER) | payer MEDICARE, MEDICAID | END 2024-12-09 16:06 | disposition home or self-care (01) | LOC: JP.ED 13:15 | DX: T81.49XA Infection following a procedure, other surgical site, initial encounter (principal); I10 Essential (primary) hypertension; K21.9 Gastro-esophageal reflux disease without esophagitis; E11.9 Type 2 diabetes mellitus without complications; Z91.048 Other nonmedicinal substance allergy status; Z91.030 Bee allergy status; Z79.899 Other long term (current) drug therapy; Z79.4 Long term (current) use of insulin; Z79.85 Long-term (current) use of injectable non-insulin antidiabetic drugs | CPT/HCPCS: 99283 ==

== ENCOUNTER 2025-01-17 09:06 | Emergency (ER) | payer MEDICARE, MEDICAID | END 2025-01-17 10:55 | disposition home or self-care (01) | LOC: JP.ED 09:06 | DX: T54.91XA Toxic effect of unspecified corrosive substance, accidental (unintentional), initial encounter (principal); T59.891A Toxic effect of other specified gases, fumes and vapors, accidental (unintentional), initial encounter; I10 Essential (primary) hypertension; K21.9 Gastro-esophageal reflux disease without esophagitis; E11.9 Type 2 diabetes mellitus without complications; Z91.030 Bee allergy status; Z91.09 Other allergy status, other than to drugs and biological substances; Z79.4 Long term (current) use of insulin; Z79.899 Other long term (current) drug therapy | CPT/HCPCS: 71045; 99285; A9270 ==